=== PATIENT | male | born 1955 | race Caucasian/White ===

== ENCOUNTER 2018-08-26 09:13 | Outpatient (REF) | payer BC, SELFPAY ==
[2018-08-26 13:26] LABS: HCT 46.9 % (40.0-50.0); HGB 15.5 g/dL (13.5-17.5); Mean Corpuscular Hemoglobin 28.9 pg (27.0-33.0); Mean Corpuscular Volume 87.3 fL (80-95); Mean Platelet Volume 10.2 fL (8.0-11.0); Platelet Count 264 x1000/uL (130-400); RBC 5.37 m/cumm (4.50-6.00); RBC Distribution Width 12.5 % (11.8-14.1)
[2018-08-26 14:15] LABS: ALT 24 U/L (12-78); AST 18 U/L (15-37); Albumin 3.9 g/dL (3.4-5.0); Alkaline Phosphatase 60 U/L (46-116); Anion Gap 7.1 mmol/L (3-11); BUN 22 mg/dL (7-18); Bilirubin, Total 0.5 mg/dL (0.2-1.0); CO2 28.9 mmol/L (21.0-32.0); CREATININE 1.22 mg/dL (0.70-1.30); Calcium 9.3 mg/dL (8.5-10.1); Chloride 106 mmol/L (98-107); Cholesterol 140 mg/dL (50-200); Glucose 93 mg/dL (70-100); HDL Cholesterol 42 mg/dL (40-60); LDL CHOLESTEROL 55 mg/dL (<100); Potassium 4.6 mmol/L (3.5-5.1); Sodium 142 mmol/L (136-145); Total Protein 7.1 g/dL (6.4-8.2); Triglyceride 130 mg/dL (30-150)
== END 2018-08-26 09:33 ==
LOC: NCHCN 09:13
PROVIDERS: PCP Family Medicine; Visit Provider Family Medicine
DX: Z00.00 Encounter for general adult medical examination without abnormal findings (principal); C61 Malignant neoplasm of prostate; G47.33 Obstructive sleep apnea (adult) (pediatric)
CPT/HCPCS: 80053; 80061; 83721; 85027

== ENCOUNTER 2018-08-27 15:25 | Outpatient (CLI) | payer BC, SELFPAY ==
[2018-08-29 10:46] LABS: PSA, Diagnostic <0.1 ng/ml (0-4.5)
== END 2018-08-27 15:45 ==
PROVIDERS: PCP Family Medicine; Visit Provider Urology
DX: C61 Malignant neoplasm of prostate (principal)
CPT/HCPCS: 36415; 84153

== ENCOUNTER 2019-08-28 01:27 | Outpatient (CLI) | payer BC, SELFPAY ==
[2019-08-28 08:59] LABS: ALT 35 U/L (16-63); AST 22 U/L (15-37); Albumin 3.7 g/dL (3.4-5.0); Alkaline Phosphatase 59 U/L (46-116); Anion Gap 9.5 mmol/L (3-11); BUN 22 mg/dL (7-18); Bilirubin, Total 0.5 mg/dL (0.2-1.0); CO2 26.5 mmol/L (21.0-32.0); CREATININE 1.21 mg/dL (0.70-1.30); Calcium 8.9 mg/dL (8.5-10.1); Calculated LDL 77 mg/dL; Chloride 106 mmol/L (98-107); Cholesterol 143 mg/dL (<200); Glucose 96 mg/dL (74-106); HDL Cholesterol 38 mg/dL (40-60); Potassium 4.2 mmol/L (3.5-5.1); Sodium 142 mmol/L (136-145); Total Protein 6.6 g/dL (6.4-8.2); Triglyceride 141 mg/dL (<150)
[2019-08-29 15:16] LABS: PSA, Diagnostic <0.1 ng/mL (0.0-4.5)
== END 2019-08-28 01:47 ==
PROVIDERS: PCP Family Medicine; Visit Provider Family Medicine
DX: Z00.00 Encounter for general adult medical examination without abnormal findings (principal); Z13.220 Encounter for screening for lipoid disorders; C61 Malignant neoplasm of prostate
CPT/HCPCS: 36415; 80053; 80061; 84153

== ENCOUNTER 2020-08-27 04:56 | Outpatient (CLI) | payer BC, SELFPAY ==
[2020-08-27 07:59] LABS: HCT 47.3 % (40.0-50.0); HGB 15.7 g/dL (13.5-17.5); MCH 28.5 pg (27.0-33.0); MCHC 33.2 % (32.0-36.0); MCV 85.8 fL (80-95); MPV 9.4 fL (8.0-11.0); Platelet Count 268 10^3/uL (130-400); RBC 5.51 10^6/uL (4.36-5.78); RDW 11.9 % (11.8-14.1); RDW-SD 37.2 fL; WBC 4.86 10^3/uL (4.4-10.8)
[2020-08-27 09:45] LABS: ALT 36 U/L (16-63); AST 22 U/L (15-37); Alkaline Phosphatase 58 U/L (46-116); Anion Gap 8.1 mmol/L (3-11); BUN 19 mg/dL (7-18); Bilirubin, Total 0.5 mg/dL (0.2-1.0); CO2 26.9 mmol/L (21.0-32.0); CREATININE 1.34 mg/dL (0.70-1.30); Calculated LDL 81 mg/dL (<100); Chloride 105 mmol/L (98-107); Cholesterol 157 mg/dL (<200); Estimated GFR 54.01 (mL/min/1.73m2); Glucose 103 mg/dL (74-106); HDL Cholesterol 50 mg/dL (40-60); Potassium 4.3 mmol/L (3.5-5.1); Sodium 140 mmol/L (136-145); Total Protein 7.1 g/dL (6.4-8.2); Triglyceride 133 mg/dL (<150)
[2020-08-27 19:19] LABS: PSA, Diagnostic <0.1 ng/mL (0.0-4.5)
[2020-08-30 05:20] LABS: Vitamin D 25 Total 38.7 ng/ml (30-100)
== END 2020-08-27 05:16 ==
PROVIDERS: PCP Family Medicine; Visit Provider Urology
DX: Z00.00 Encounter for general adult medical examination without abnormal findings (principal); C61 Malignant neoplasm of prostate; E55.9 Vitamin D deficiency, unspecified; Z13.220 Encounter for screening for lipoid disorders
CPT/HCPCS: 36415; 80053; 80061; 82306; 85027; 84153

== ENCOUNTER 2021-08-26 01:08 | Outpatient (CLI) | payer BC, SELFPAY ==
[2021-08-26 09:15] LABS: ALT 30 U/L (16-63); AST 19 U/L (15-37); Albumin 3.7 g/dL (3.4-5.0); Alkaline Phosphatase 58 U/L (46-116); Anion Gap 7.1 mmol/L (3-11); BUN 17 mg/dL (7-18); Bilirubin, Total 0.3 mg/dL (0.2-1.0); CO2 28.9 mmol/L (21.0-32.0); CREATININE 1.1 mg/dL (0.70-1.30); Calcium 8.9 mg/dL (8.5-10.1); Calculated LDL 80 mg/dL (<100); Chloride 105 mmol/L (98-107); Cholesterol 156 mg/dL (<200); Glucose 100 mg/dL (74-106); HDL Cholesterol 56 mg/dL (40-60); Potassium 4.2 mmol/L (3.5-5.1); Sodium 141 mmol/L (136-145); Total Protein 6.5 g/dL (6.4-8.2); Triglyceride 102 mg/dL (<150)
[2021-08-26 17:40] LABS: PSA, Diagnostic <0.1 ng/mL (0.0-4.5)
[2021-08-29 05:44] LABS: Vitamin D 25 Total 41.6 ng/mL (30-100)
== END 2021-08-26 01:09 | disposition home or self-care (01) ==
LOC: LBO 01:08
PROVIDERS: PCP Family Medicine; Visit Provider Urology
DX: E55.9 Vitamin D deficiency, unspecified; Z13.220 Encounter for screening for lipoid disorders; Z00.00 Encounter for general adult medical examination without abnormal findings; C61 Malignant neoplasm of prostate
CPT/HCPCS: 36415; 80053; 80061; 82306; 84153

== ENCOUNTER 2022-08-25 01:29 | Outpatient (CLI) | payer BC, SELFPAY ==
[2022-08-25 09:51] LABS: ALT 31 U/L (16-63); AST 19 U/L (15-37); Alkaline Phosphatase 60 U/L (46-116); Anion Gap 6.2 mmol/L (3-11); BUN 26 mg/dL (7-18); Bilirubin, Total 0.5 mg/dL (0.2-1.0); CO2 29.8 mmol/L (21.0-32.0); CREATININE 1.2 mg/dL (0.70-1.30); Calcium 9.2 mg/dL (8.5-10.1); Calculated LDL 84 mg/dL (<100); Chloride 105 mmol/L (98-107); Cholesterol 159 mg/dL (<200); Estimated GFR 67.53 (mL/min/1.73m2); Glucose 101 mg/dL (74-106); HDL Cholesterol 55 mg/dL (40-60); Sodium 141 mmol/L (136-145); Total Protein 7.3 g/dL (6.4-8.2); Triglyceride 104 mg/dL (<150)
[2022-08-25 20:28] LABS: PSA, Diagnostic <0.1 ng/mL (<=4.5)
== END 2022-08-25 01:30 | disposition home or self-care (01) ==
LOC: LBO 01:29
PROVIDERS: Urology; PCP Family Medicine; Visit Provider Family Medicine
DX: C61 Malignant neoplasm of prostate (principal); Z00.00 Encounter for general adult medical examination without abnormal findings
CPT/HCPCS: 36415; 80053; 80061; 84153

== ENCOUNTER 2022-12-11 06:45 | Day surgery (SDC) | payer MEDICARE, SELFPAY ==
--- NOTE | 2022-12-11 07:00 | W.ANESPRE ---
General Info Date of Service Date Performed: 12/11/22 Height: 5 ft 8.5 in Weight: 78.471 kg Body Mass Index (BMI): 25.9 Surgical Procedure: Operation Date: 12/11/22 08:40 Proposed Procedure Side Surgeon p Cataract Extraction with IOL Implant Left Julio Moerno MD Meds Allergies and Home Medications Allergies Allergy/AdvReac Type Severity Reaction Status Date / Time No Known Allergies Allergy Verified 12/11/22 07:31 Home Medication Medication Instructions Recorded sildenafil 100 mg tablet (Viagra) 100 mg PO PRN #10 tab-caps 09/03/20 mecobalamin (vitamin B12) 1,000 1,000 mcg PO DAILY 09/06/21 mcg chewable tablet multivitamin 1 tab PO DAILY 09/06/21 Current Visit Medications: Current Medications Generic Name Dose Route Start Last Admin Trade Name Freq PRN Reason Stop Dose Admin Acetaminophen 1,000 mg 12/11/22 06:20 Acetaminophen 500 Mg Tab PO Q4H PRN PRN Miscellaneous Medication 0 ml 12/11/22 06:20 Prednisolone 1%, Moxifloxacin 0.5%, Nepafenac 0.1% 5ml Btl OS DIRECTED RENATE Miscellaneous Medication 0 ml 12/11/22 06:20 Tropicam./Phenyleph. (1/2.5%) 5 Ml Btl OS DIRECTED RENATE Tetracaine HCl 0 ml 12/11/22 06:20 Tetracaine 0.5% 4 Ml Btl OS DIRECTED RENATE PFSH Active Problems Active Problems: Problem Status Onset Code Erectile dysfunction after radical prostatectomy 08/30/17 N52.31 Prostate cancer 08/30/17 C61 Nuclear age-related cataract, left eye H25.12 Cortical cataract of left eye H26.9 Medical History Medical History (Updated 12/08/22 @ 09:57 by Francis Smith) Central sleep apnea Detached retina Fracture of malleolus of right ankle Traumatic brain injury 2014-has had balance issues and central sleep apnea Umbilical hernia Medical History Comments:: CSA Surgical History Surgical History Radical prostatectomy scleral buckle Tobacco Smoking/Tobacco Use Status: Never Substance Use Substance use: Never Substance use type: does not use Vital Signs and Lab Results Lab Results Blood Type / Crossmatch: No Data to Display Complete Blood Count: No Data to Display Complete Metabolic Panel: No Data to Display Liver Function Panel: No Data to Display Coagulation Panel: No Data to Display Cardiac Panel: No Data to Display Arterial Blood Gas: No Data to Display Venous Blood Gas: No Data to Display Pancreas Panel: No Data to Display Thyroid Panel: No Data to Display Infectious Disease: No Data to Display Blood Cultures: No Data to Display Toxicology Panel: No Data to Display Anesthesia Assessment and Plan Anesthesia History Personal History: Other Family History: No Family History of Anesthesia Complications Exercise Tolerance Exercise Tolerance: Metabolic Equivalents>4 Pertinent Negatives Pertinent Negatives: No Symptoms of GERD, No Major Cardiovascular Symptoms or Complaints and Other (History of TBI, history of central sleep apnea. Patient uses CPAP/mini-ventilator at night) Cardiac & Pulmonary Exam Cardiac Exam: Normal S1/S2 Heart Sounds Pulmonary Exam: Clear Bilateral Breath Sounds Implantable Cardiac Device Does patient have a Pacemaker or an ICD?: No Airway Exam Known Difficult Airway: No Mallampati Class: 2 Mouth Opening: Normal (> 3cm) Thyromental Distance: Greater than 3 cm Neck Range of Motion: Full ROM Neck Circumference: Normal Teeth Condition: Normal Dentition Tooth Numberin. Indicated tooth missing in this region (surgically removed per patient). did not directly appreciate during airway assessment ASA Classification ASA Score: ASA 2 Emergency Case?: No NPO Status NPO Status: NPO Clears >2 hours, Solids >8 hours Anesthesia Plan Resuscitation Status: Full Code Anesthesia Technique: MAC Anesthesia Airway Planned: Natural Airway Monitors Used: Standard Monitors
[2022-12-11 07:19] VITALS: BP 139/85; PULSE 76; RESP 16; TEMP 37; O2SAT 96
[2022-12-11] MEDS: Tropicam./Phenyleph. (1/2.5%) 5 ML BTL (07:28)
[2022-12-11] MEDS: Tropicam./Phenyleph. (1/2.5%) 5 ML BTL OS ×3 (07:28→07:46)
[2022-12-11 07:38] VITALS: BMI 25.9
[2022-12-11] MEDS: Tetracaine 0.5% 4 ML BTL OS (08:40)
[2022-12-11] MEDS: Lidocaine 1% Pres-Free 5 ML VIAL (08:41)
[2022-12-11] MEDS: Duovisc Viscoelastic System EACH 1 EACH (08:41)
[2022-12-11] MEDS: Phenylephrine/Lidocaine (15/10) MG/ML 1 ML VIAL (08:42)
[2022-12-11] MEDS: Povidone-Iodine Ophth 30 ML BTL (08:43)
[2022-12-11] MEDS: Balanced Salt Soln.-PLUS 500 ML BAG (08:53)
[2022-12-11 09:00] VITALS: BP 133/86; PULSE 66; RESP 16; TEMP 36.6; O2SAT 98
--- NOTE | 2022-12-11 09:02 | W.PM.DSUDISC ---
Date of service: 12/11/22 Time of Service: 09:02 Discharge Plan Disposition Patient Disposition: Home Discharge Details Attending Provider: Julio Moreno Primary Care Provider: Flor Malcolm Home Meds and New Rx's Prescriptions: No Action sildenafil [Viagra] 100 mg tablet 100 mg PO PRN Qty: 10 12RF multivitamin Tablet 1 tab PO DAILY mecobalamin (vitamin B12) 1,000 mcg tablet,chewable 1,000 mcg PO DAILY flonase 2 spry NU PRN Qty: 1 0RF Discharge Instructions Stand Alone Forms: Post-op Topical Cataract, Rachael Carnes (DSU) Discharge Orders Discharge Orders: Discharge Order (Routine); Ordered 12/11/22 Ordered By: Julio Mroeno DS: Diagnosis Discharge Diagnosis (1) Nuclear age-related cataract, left eye: Status: Resolved (2) Cortical cataract of left eye: Status: Resolved
--- NOTE | 2022-12-11 09:03 | ROE_ITS ---
Date of service: 12/11/22 Time of Service: 09:03 Operative Note Operative Note DATE OF PROCEDURE: 12/11/22 PRE-OP DIAGNOSIS: Nuclear/cortical cataract, left eye Myopia, left eye History of retinal detachment, left eye, repaired with scleral buckle and pneumatic retinopexy POST-OP DIAGNOSIS: same PROCEDURE: Cataract extraction using phacoemulsification with intraocular lens implant, lef t eye SURGEON: Julio Moreno ANESTHESIA TYPE: Local By Surgeon and MAC Refer to Anesthesia Record PATHOLOGY: none sent COMPLICATIONS: None Patient was transported to: same day Patient's condition: stable Implants: Angel and Angel Tecnis Eyhance [id number] Indications: Progressive decreased vision due to cataract, left eye Procedure Description: CATARACT SURGERY OPERATIVE REPORT PREOPERATIVE DIAGNOSIS: 1. Nuclear/cortical cataract, left eye 2. High myopia, left eye 3. Post scleral buckle with pneumatic retinopexy, left eye POSTOPERATIVE DIAGNOSIS: Same OPERATION: 1. Cataract extraction using phacoemulsification with posterior chamber intraocular lens implant, left eye. 2. Implantation of capsular tension ring IOL: IOL Traveling Buyer/Model: Angel & Angel Tecnis Eyhance DIB00 IOL Power: + 7.0 diopters IOL Serial Number: [id number] Optic Diameter: 6.0 mm Haptic/Overall Diameter: 13.0 mm PHACO INFO: Rufino Centurion Vision System with OZil and Active Fluidics Cumulative Dispersed Energy (CDE): 4.01 seconds SURGEON: Julio Moreno MD, JUAN ANESTHESIA: Monitored A [facility] (MAC), with local sub-tenon's anesthetic infiltration COMPLICATIONS: None SPECIMENS: None INDICATIONS FOR PROCEDURE: The patient is a 67-year-old male with history of diminished visual acuity in his left eye secondary to develop nuclear/cortical cataract. He has a history of retinal detachment in the left eye and is status post pneumatic retinopexy and scleral buckling procedure. He has developed asymptomatic nuclear/cortical cataract and desires cataract surgery and attempt to improve and maximize his vision. The option of cataract surgery was offered to the patient and he wished to proceed. PROCEDURE: The correct surgical eye was identified and marked as the left eye and the pupil was dilated in the preoperative area using mydriatics and cycloplegics. The dilated pupil size was 8.0 mm. The patient elected to proceed without oral sedation. The patient was brought to the operating room where cardiopulmonary monitoring was instituted and surgical time-out was performed, confirming the correct operative eye and IOL power. Topical anesthesia was administered and ophthalmic povidone-iodine 5% was instilled into the conjunctival fornices. Lidocaine gel was applied to the cornea and the sally-ocular area was prepped with Betadine 10% solution and draped in the usual sterile fashion for intraocular surgery, including an aperture drape. A Tegaderm transparent film dressing was cut in half and used to cover the lashes and lid margins. Care was taken to sequester the lashes and lid margins under the Tegaderm dressing. A lid speculum was placed between the lids of the operative eye and the Rufino LuxOR Revalia operating microscope was maneuvered into position. Hyacinth scissors were then used to make a conjunctival buttonhole approximately 6mm posterior to the limbus in the inferonasal quadrant. Blunt dissection was carried out to expose bare sclera, and a blunt-tipped sub-tenon?s anesthesia cannula was introduced and passed posteriorly along the globe where non- preserved plain lidocaine was injected into posterior sub-Tenon?s space. Sub- tenon's block was incomplete secondary to the presence of the scleral buckle. A sideport knife was used to make a paracentesis port superiorly/superiortemporally. Intraocular phenylephrine/lidocaine was injected int the anterior chamber.. The anterior chamber was filled with viscoelastic. A keratome knife was used to construct a 2-plane near-clear corneal tunnel extending 2.0mm into clear cornea temporally. A flap was raised on the anterior capsule and capsulorhexis forceps were used to complete a continuous curvilinear capsulorhexis of 5.5 mm. The capsule was noted to be quite thin. Moderate to severe generalized zonular laxity was noted. Balanced salt solution was then used to perform cortical cleaving hydrodissection and nuclear hydrodelineation until the lens could be freely rotated within the capsular bag. The lens nucleus was then disassembled and removed within the capsular bag and iris plane using phacoemulsification. The ventricular zonular complex was noted to be quite mobile. Residual cortical material was removed using the 45-degree angled silicone I/A tip with 0.3mm port. The cortex was quite sticky, and required extensive irrigation/aspiration. There were some thin adherent strands in the subincisional area which could not be safely removed. The posterior capsule was carefully polished to remove as much residual lens epithelial cells as safely possible. The posterior capsule was noted to be extremely thin. The capsular bag was then inflated and the anterior chamber deepened with viscoelastic. A Morcher Type 15A capsule tension ring was inserted into the capsular bag without difficulty. The lens implant described above was inserted into the capsular bag using the Angel and Angel Simplicity pre-loaded injector. . A Kuglen hook was used to dial the IOL into position. Residual viscoelastic was then removed first from posterior to the IOL, then from the anterior chamber using the I/A handpiece. The lens implant was noted to center nicely within the capsular bag. The incisions were stromally hydrated, and the anterior chamber was reformed using BSS. Then 0.5cc of moxifloxacin 1.0mg/ml were injected into the capsular bag and anterior chamber. The incisions were checked with a Weck spear and found to be secure. Several drops of ophthalmic povidone-iodine 5% were then applied to the eye followed by two drops of Imprimis combination prednisolone/moxifloxacin/nepafenac solution. The drapes were removed and a clear plastic protective eye shield was placed over the eye. The patient was then returned to Same Day Surgery in stable condition.
--- NOTE | 2022-12-11 10:17 | W.ANESPOSTOP ---
Postoperative Evaluation Date, Time and Location Date Performed: 12/11/22 Time Performed: 09:00 Patient Location: Day Surgery Unit Vital Signs Most Recent Imported Vital Signs: Most Recent Vital Signs Temp Pulse Resp BP Pulse Ox 36.6 C 66 16 133/86 98 12/11/22 09:00 12/11/22 09:00 12/11/22 09:00 12/11/22 09:00 12/11/22 09:00 Pain Score Most Recent Pain Score: Most Recent Pain Score Pain Level 0 12/11/22 09:00 Assessment Mental Status: Awake (Alert & Oriented to Patient Baseline) Airway and Respiratory Function: Patent airway with normal (patient baseline) respiratory exam Cardiovascular Function: Hemodynamically Stable Hydration Status: Adequately Hydrated Nausea & Vomiting: No Nausea or Vomiting Pain: Pt. Denies Any Pain Peripheral Nerve Block: Other (Local by Dr. Moreno)
== END 2022-12-11 09:29 | disposition home or self-care (01) ==
LOC: SUR 06:47
PROVIDERS: PCP Family Medicine; Visit Provider Ophthalmology
PROC: (CPT 66982; principal; 2022-12-11 08:30)
DX: H25.12 Age-related nuclear cataract, left eye (principal); H52.12 Myopia, left eye; G47.30 Sleep apnea, unspecified; Z86.69 Personal history of other diseases of the nervous system and sense organs
CPT/HCPCS: 66982; V2632

== ENCOUNTER 2022-12-25 11:46 | Day surgery (SDC) | payer MEDICARE, SELFPAY ==
[2022-12-25 12:10] VITALS: BP 130/89; PULSE 73; RESP 16; TEMP 36.3; O2SAT 94
[2022-12-25] MEDS: Tropicam./Phenyleph. (1/2.5%) 5 ML BTL OD ×3 (12:18→12:33)
--- NOTE | 2022-12-25 12:21 | W.ANESPRE ---
General Info Date of Service Date Performed: 12/25/22 Height: 5 ft 8.5 in Weight: 81.8 kg Body Mass Index (BMI): 27.0 Surgical Procedure: Operation Date: 12/25/22 15:40 Proposed Procedure Side Surgeon p Cataract Extraction with IOL Implant Right Julio Moreno MD Meds Allergies and Home Medications Allergies Allergy/AdvReac Type Severity Reaction Status Date / Time No Known Allergies Allergy Verified 12/22/22 13:57 Home Medication Medication Instructions Recorded sildenafil 100 mg tablet (Viagra) 100 mg PO PRN #10 tab-caps 09/03/20 mecobalamin (vitamin B12) 1,000 1,000 mcg PO DAILY 09/06/21 mcg chewable tablet multivitamin 1 tab PO DAILY 09/06/21 Current Visit Medications: Current Medications Generic Name Dose Route Start Last Admin Trade Name Freq PRN Reason Stop Dose Admin Acetaminophen 1,000 mg 12/25/22 06:00 Acetaminophen 500 Mg Tab PO Q4H PRN PRN Miscellaneous Medication 0 ml 12/25/22 06:00 12/25/22 12:18 Tropicam./Phenyleph. (1/2.5%) 5 Ml Btl OD 1 drp DIRECTED RENATE Administration Miscellaneous Medication 0 ml 12/25/22 06:00 Prednisolone 1%, Moxifloxacin 0.5%, Nepafenac 0.1% 5ml Btl OD DIRECTED RENATE Tetracaine HCl 0 ml 12/25/22 06:00 Tetracaine 0.5% 4 Ml Btl OD DIRECTED RENATE PFSH Active Problems Active Problems: Problem Status Onset Code Erectile dysfunction after radical prostatectomy 08/30/17 N52.31 Prostate cancer 08/30/17 C61 Nuclear age-related cataract, left eye H25.12 Cortical cataract of left eye H26.9 Medical History Medical History Central sleep apnea Detached retina Fracture of malleolus of right ankle Traumatic brain injury 2013-has had balance issues and central sleep apnea Umbilical hernia Medical History Comments:: CSA Surgical History Surgical History Radical prostatectomy scleral buckle Tobacco Smoking/Tobacco Use Status: Never Alcohol Alcohol Intake: current Alcohol intake frequency: a few times a week Alcohol type: beer Substance Use Substance use: Never Substance use type: does not use Vital Signs and Lab Results Vital Signs Most Recent Vital Signs in EMR: Most Recent Vital Signs Temp Pulse Resp BP Pulse Ox 36.3 C L 73 16 130/89 94 12/25/22 12:10 12/25/22 12:10 12/25/22 12:10 12/25/22 12:10 12/25/22 12:10 Lab Results Blood Type / Crossmatch: No Data to Display Complete Blood Count: No Data to Display Complete Metabolic Panel: No Data to Display Liver Function Panel: No Data to Display Coagulation Panel: No Data to Display Cardiac Panel: No Data to Display Arterial Blood Gas: No Data to Display Venous Blood Gas: No Data to Display Pancreas Panel: No Data to Display Thyroid Panel: No Data to Display Infectious Disease: No Data to Display Blood Cultures: No Data to Display Toxicology Panel: No Data to Display Anesthesia Assessment and Plan Anesthesia History Personal History: No History of Anesthesia Complications Family History: No Family History of Anesthesia Complications Exercise Tolerance Exercise Tolerance: Metabolic Equivalents>4 Pertinent Negatives Pertinent Negatives: No Symptoms of GERD, No Major Cardiovascular Symptoms or Complaints and No Major Pulmonary Symptoms or Complaints Cardiac & Pulmonary Exam Cardiac Exam: Normal S1/S2 Heart Sounds Pulmonary Exam: Clear Bilateral Breath Sounds Implantable Cardiac Device Does patient have a Pacemaker or an ICD?: No Airway Exam Known Difficult Airway: No Mallampati Class: 2 Mouth Opening: Normal (> 3cm) Thyromental Distance: Greater than 3 cm Neck Range of Motion: Full ROM Neck Circumference: Normal Teeth Condition: Normal Dentition ASA Classification ASA Score: ASA 2 Emergency Case?: No NPO Status NPO Status: NPO Clears >2 hours, Solids >8 hours Anesthesia Plan Resuscitation Status: Full Code Anesthesia Technique: MAC Anesthesia Airway Planned: Natural Airway Monitors Used: Standard Monitors
[2022-12-25 12:46] VITALS: BMI 27.0
[2022-12-25] MEDS: Tetracaine 0.5% 4 ML BTL OD (13:01)
[2022-12-25] MEDS: Duovisc Viscoelastic System EACH 1 EACH (13:02)
[2022-12-25] MEDS: Balanced Salt Soln.-PLUS 500 ML BAG (13:02)
[2022-12-25] MEDS: Lidocaine 1% Pres-Free 5 ML VIAL (13:02)
[2022-12-25] MEDS: Phenylephrine/Lidocaine (15/10) MG/ML 1 ML VIAL (13:04)
[2022-12-25] MEDS: Povidone-Iodine Ophth 30 ML BTL (13:04)
[2022-12-25 13:15] VITALS: BP 130/92; PULSE 66; RESP 16; TEMP 36.3; O2SAT 99
--- NOTE | 2022-12-25 13:16 | ROE_ITS ---
Date of service: 12/25/22 Time of Service: 13:16 Operative Note Operative Note DATE OF PROCEDURE: 12/25/22 PRE-OP DIAGNOSIS: Nuclear cataract, right eye high myopia POST-OP DIAGNOSIS: same PROCEDURE: Cataract extraction using phacoemulsification with intraocular lens implant, right eye SURGEON: Julio Moreno ANESTHESIA TYPE: Local By Surgeon and MAC Refer to Anesthesia Record ESTIMATED BLOOD LOSS: 0 PATHOLOGY: none sent COMPLICATIONS: None Patient was transported to: same day Patient's condition: stable Implants: Angel & Angel Tecnis Eyhance [id number] Indications: Progressive visual loss due to cataract, right eye Procedure Description: CATARACT SURGERY OPERATIVE REPORT PREOPERATIVE DIAGNOSIS: 1. Nuclear cataract, right eye 2. High myopia, right eye POSTOPERATIVE DIAGNOSIS: Same OPERATION: 1. Cataract extraction using phacoemulsification with posterior chamber intraocular lens implant, right eye. IOL: IOL Phlebotomy Instructor/Model: Angel & Angel Tecnis Eyhance DIB00 IOL Power: + 9.0 diopters IOL Serial Number: [id number] Optic Diameter: 6.0mm Haptic/Overall Diameter: 13.0mm PHACO INFO: Rufino Decision Sciencesurion Vision System with OZil and Active Fluidics Cumulative Dispersed Energy (CDE): 4.76 seconds SURGEON: Julio Moreno MD, JUAN ANESTHESIA: Monitored Anesthesia Care (MAC), with local sub-tenon's anesthetic infiltration COMPLICATIONS: None SPECIMENS: None INDICATIONS FOR PROCEDURE: The patient is a 67-year-old gentleman with history of high myopia who has developed significant bilateral nuclear cataract. He previously had retinal detachment surgery in the left eye and has already undergone cataract surgery t here. He now presents for removal of visual asymptomatic cataract in the right eye. PROCEDURE: The correct surgical eye was identified and marked as the right eye and the pupil was dilated in the preoperative area using mydriatics and cycloplegics. The dilated pupil size was 8.0 mm. The patient elected to proceed without oral sedation. The patient was brought to the operating room where cardiopulmonary monitoring was instituted and surgical time-out was performed, confirming the correct operative eye and IOL power. Topical anesthesia was administered and ophthalmic povidone-iodine 5% was instilled into the conjunctival fornices. Lidocaine gel was applied to the cornea and the sally-ocular area was prepped with Betadine 10% solution and draped in the usual sterile fashion for intraocular surgery, including an aperture drape. A Tegaderm transparent film dressing was cut in half and used to cover the lashes and lid margins. Care was taken to sequester the lashes and lid margins under the Tegaderm dressing. A lid speculum was placed between the lids of the operative eye and the Rufino LuxOR Revalia operating microscope was maneuvered into position. Hyacinth scissors were then used to make a conjunctival buttonhole approximately 6mm posterior to the limbus in the inferonasal quadrant. Blunt dissection was carried out to expose bare sclera, and a blunt-tipped sub-tenon?s anesthesia cannula was introduced and passed posteriorly along the globe where non- preserved plain lidocaine was injected into posterior sub-Tenon?s space. A sideport knife was used to make a paracentesis port inferotemporally. Intraocular phenylephrine/lidocaine was injected into the anterior chamber. The anterior chamber was filled with viscoelastic. A keratome knife was used to construct a 2-plane near-clear corneal tunnel extending 2.0mm into clear cornea superiortemporally. A flap was raised on the anterior capsule and capsulorhexis forceps were used to complete a continuous curvilinear capsulorhexis of 5.5 mm. Balanced salt solution was then used to perform cortical cleaving hydrodissection and nuclear hydrodelineation until the lens could be freely rotated within the capsular bag. The lens nucleus was then disassembled and removed within the capsular bag and iris plane using phacoemulsification. Residual cortical material was removed using the I/A handpiece. The posterior capsule was carefully polished to remove as much residual lens epithelial cells as safely possible. The capsular bag was then inflated and the anterior chamber deepened with viscoelastic. The lens implant described above was inserted into the capsular bag using the Angel and Kelin Simplicity pre-loaded injector. A Kuglen hook was used to dial the IOL into position. Residual viscoelastic was then removed first from posterior to the IOL, then from the anterior chamber using the I/A handpiece. The lens implant was noted to center nicely within the capsular bag. The incisions were stromally hydrated, and the anterior chamber was reformed using BSS. Then 0.5cc of moxifloxacin 1.0mg/ml were injected into the capsular bag and anterior chamber. The incisions were checked with a Weck spear and found to be secure. Several drops of ophthalmic povidone-iodine 5% were then applied to the eye followed by two drops of Imprimis combination prednisolone/moxifloxacin/nepafenac solution. The drapes were removed and a clear plastic protective eye shield was placed over the eye. The patient was then returned to Same Day Surgery in stable condition.
--- NOTE | 2022-12-25 13:16 | W.PM.DSUDISC ---
Date of service: 12/25/22 Time of Service: 13:16 Discharge Plan Disposition Patient Disposition: Home Discharge Details Attending Provider: Julio Moreno Primary Care Provider: Flor Malcolm Home Meds and New Rx's Prescriptions: No Action sildenafil [Viagra] 100 mg tablet 100 mg PO PRN Qty: 10 12RF multivitamin Tablet 1 tab PO DAILY mecobalamin (vitamin B12) 1,000 mcg tablet,chewable 1,000 mcg PO DAILY flonase 2 spry NU PRN Qty: 1 0RF Discharge Instructions Stand Alone Forms: Post-op Topical Cataract, Rachael Carnes (DSU) Discharge Orders Discharge Orders: Discharge Order (Routine); Ordered 12/25/22 Ordered By: Julio Moreno DS: Diagnosis Discharge Diagnosis (1) Nuclear age-related cataract, right eye: Status: Resolved
--- NOTE | 2022-12-25 13:47 | W.ANESPOSTOP ---
Postoperative Evaluation Date, Time and Location Date Performed: 12/25/22 Time Performed: 13:20 Patient Location: Day Surgery Unit Vital Signs Most Recent Imported Vital Signs: Most Recent Vital Signs Temp Pulse Resp BP Pulse Ox 36.3 C L 66 16 130/92 H 99 12/25/22 13:15 12/25/22 13:15 12/25/22 13:15 12/25/22 13:15 12/25/22 13:15 Pain Score Most Recent Pain Score: Most Recent Pain Score Pain Level 0 12/25/22 13:15 Assessment Mental Status: Awake (Alert & Oriented to Patient Baseline) Airway and Respiratory Function: Patent airway with normal (patient baseline) respiratory exam Cardiovascular Function: Hemodynamically Stable Hydration Status: Adequately Hydrated Nausea & Vomiting: No Nausea or Vomiting Pain: Pt. Denies Any Pain Peripheral Nerve Block: Patient did not receive a nerve block
== END 2022-12-25 13:43 | disposition home or self-care (01) ==
LOC: SUR 11:46
PROVIDERS: PCP Family Medicine; Visit Provider Ophthalmology
PROC: (CPT 66984; principal; 2022-12-25 15:30)
DX: H25.11 Age-related nuclear cataract, right eye (principal); Z98.42 Cataract extraction status, left eye
CPT/HCPCS: 66984; V2632

== ENCOUNTER → 2023-03-29 13:27 | Outpatient (BNVA) | payer MEDICARE, BC, SELFPAY | PROVIDERS: PCP Family Medicine; Referring Provider Family Medicine; Visit Provider Physical Therapy Assistant | DX: Z12.11 Encounter for screening for malignant neoplasm of colon (principal); Z86.010 Personal history of colon polyps ==

== ENCOUNTER 2023-04-09 10:33 | Day surgery (SDC) | payer MEDICARE, SELFPAY ==
[2023-04-09] VITALS (7 sets, daily range): BP systolic 91–131; BP diastolic 45–98; PULSE 67–82; RESP 11–18; TEMP 36.1–36.8; O2SAT 97–99; BMI 26.4
--- NOTE | 2023-04-09 09:46 | ANES.PREOP_ITS ---
General Info Date of Service Date Performed: 04/09/23 Height: 5 ft 8.5 in Weight: 79.832 kg Body Mass Index (BMI): 26.4 Surgical Procedure: Operation Date: 04/09/23 11:20 Proposed Procedure Side Surgeon kary Ang, DO Meds Allergies and Home Medications Allergies Allergy/AdvReac Type Severity Reaction Status Date / Time No Known Allergies Allergy Verified 04/09/23 10:53 Home Medication Medication Instructions Recorded sildenafil 100 mg tablet (Viagra) 100 mg PO PRN #10 tab-caps 09/03/20 mecobalamin (vitamin B12) 1,000 1,000 mcg PO DAILY 09/06/21 mcg chewable tablet multivitamin 1 tab PO DAILY 09/06/21 bisacodyl 5 mg tablet,delayed 5 mg PO ONCE #4 tabs 03/29/23 release (Dulcolax (bisacodyl)) polyethylene glycol 3350 17 17 g PO ONCE #238 grams 03/29/23 gram/dose oral powder Current Visit Medications: Current Medications Generic Name Dose Route Start Last Admin Trade Name Corbinq PRN Reason Stop Dose Admin Hyoscyamine Sulfate 0.125 mg 04/09/23 10:08 Hyoscyamine 0.125 Mg Sl/Oral/Chew SL 05/09/23 10:07 DIRECTED PRN Ringer's Solution 1,000 mls @ 80 mls/hr 04/09/23 06:00 IV 04/09/23 23:59 INFUSION [facility] IV Miscellaneous Supplies 1 each 04/09/23 06:00 Iv Access IV 04/09/23 23:59 DIRECTED [facility] Ondansetron HCl 4 mg 04/09/23 10:08 Ondansetron 4 Mg/2 Ml Vial IVP 05/09/23 10:07 Q4H PRN PRN Nausea / Vomiting Sodium Chloride 0 ml 04/09/23 06:00 Normal Saline Flush 10 Ml Syr IV 04/09/23 23:59 PRN PRN Sodium Chloride 0 ml 04/09/23 06:00 Normal Saline 10 Ml Vial IJ 04/09/23 23:59 DIRECTED PRN Sterile Water 0 ml 04/09/23 06:00 Water,Injection,Sterile 10 Ml Vial IJ 04/09/23 23:59 DIRECTED PRN PFSH Active Problems Active Problems: Problem Status Onset Code Erectile dysfunction after radical prostatectomy 08/30/17 N52.31 Prostate cancer 08/30/17 C61 Nuclear age-related cataract, left eye H25.12 Cortical cataract of left eye H26.9 Nuclear age-related cataract, right eye H25.11 Medical History Medical History (Updated 04/06/23 @ 12:03 by Francis Smith) Central sleep apnea Detached retina Fracture of malleolus of right ankle Traumatic brain injury 2014-has had balance issues and central sleep apnea (Controlled) Umbilical hernia Medical History Comments:: CSA Surgical History Surgical History H/O colonoscopy with polypectomy Radical prostatectomy scleral buckle Tobacco Smoking/Tobacco Use Status: Never Alcohol Alcohol Intake: current Alcohol intake frequency: a few times a week Alcohol type: beer Substance Use Substance use: Never Substance use type: does not use Vital Signs and Lab Results Vital Signs Most Recent Vital Signs in EMR: Temp Pulse Resp BP Pulse Ox 36.8 C 82 18 131/90 97 04/09/23 10:47 04/09/23 10:47 04/09/23 10:47 04/09/23 10:47 04/09/23 10:47 Lab Results Blood Type / Crossmatch: No Data to Display Complete Blood Count: No Data to Display Complete Metabolic Panel: No Data to Display Liver Function Panel: No Data to Display Coagulation Panel: No Data to Display Cardiac Panel: No Data to Display Arterial Blood Gas: No Data to Display Venous Blood Gas: No Data to Display Pancreas Panel: No Data to Display Thyroid Panel: No Data to Display Infectious Disease: No Data to Display Blood Cultures: No Data to Display Toxicology Panel: No Data to Display Anesthesia Assessment and Plan Anesthesia History Personal History: Other Family History: No Family History of Anesthesia Complications Exercise Tolerance Exercise Tolerance: Metabolic Equivalents>4 Cardiac & Pulmonary Exam Cardiac Exam: Normal S1/S2 Heart Sounds Pulmonary Exam: Clear Bilateral Breath Sounds Implantable Cardiac Device Does patient have a Pacemaker or an ICD?: No Airway Exam Known Difficult Airway: No Mallampati Class: 2 Mouth Opening: Normal (> 3cm) Thyromental Distance: Greater than 3 cm Neck Range of Motion: Full ROM Neck Circumference: Normal Teeth Condition: Normal Dentition ASA Classification ASA Score: ASA 2 Emergency Case?: No NPO Status NPO Status: NPO Clears >2 hours, Solids >8 hours Anesthesia Plan Resuscitation Status: Full Code Anesthesia Technique: General Anesthesia Airway Planned: Natural Airway Monitors Used: Standard Monitors Preoperative Comments:: 67 yo male for colo. Sig PMHx: central sleep apnea, TBI, radical prostatectomy, never smoker,
[2023-04-09] MEDS: Lactated Ringers 1,000 ML 80 ML IV (11:03)
--- NOTE | 2023-04-09 11:55 | BOWEL_PTH ---
PATIENT: Federico Jacob LOC: [facility] U#:[id number] AGE/SX: 67/M ROOM: RE04/09/[address]: Anabel Ang : 1955 BED: DIS: 04/09/2023 SPEC #: [id number] RECD: 04/09/23 13:13 STATUS: AMEENA RE #: [id number] FATMATA: 04/09/23 11:[address]: Anabel Ang DEPT: Surgical Specimen RECD BY: Mae Stewart ENTERED: 04/09/23 13:14 SP TYPE: Bowel OTHR DR: Flor Malcolm Tissues: 1 - BIOPSY BOWEL 2 - BIOPSY BOWEL Procedures: GROSS AND MICRO LEVEL 4 Comments: [id number]
--- NOTE | 2023-04-09 12:39 | W.PM.DSUDISC ---
Date of service: 04/09/23 Time of Service: 12:40 Discharge Plan Disposition Patient Disposition: Home Condition: Good Discharge Details Reason For Visit: colon scope Attending Provider: Anabel Ang Primary Care Provider: Flor Malcolm Home Meds and New Rx's Prescriptions: Continued sildenafil [Viagra] 100 mg tablet 100 mg PO PRN Qty: 10 12RF multivitamin Tablet 1 tab PO DAILY mecobalamin (vitamin B12) 1,000 mcg tablet,chewable 1,000 mcg PO DAILY flonase 2 spry NU PRN Qty: 1 0RF Discontinued bisacodyl [Dulcolax (bisacodyl)] 5 mg tablet,delayed release (DR/EC) 5 mg PO ONCE Qty: 4 0RF Rx Instructions: Take per colonoscopy instructions provided by ordering providers office polyethylene glycol 3350 17 gram/dose powder 17 g PO ONCE Qty: 238 0RF Rx Instructions: Take per colonoscopy instructions provided by ordering providers office Discharge Instructions Additional Instructions: DSU Colonoscopy Post-Op Instructions Instructions for Everyone who is given Anesthesia: For your safety, please do the following for the next twenty-four (24) hours: *Do Not operate a motor vehicle (car, truck, motorcycle, etc.) *Do Not drink alcoholic beverages or use any recreational drugs for the first 24 hours or while taking pain medications. The medications in your body may have a reaction that can be dangerous. *Do Not make any important decisions or sign any important papers. Findings: x1 colon polyp pseudopolyps Follow up: My office will send a letter in 2 to 3 weeks time with the biopsy results and when we want you to repeat the colonoscopy 1. No lifting over 20 pounds or strenuous activity for the first 24 hours after your procedure. After 24 hours there are no restrictions on your activity but you may feel fatigued for a few days. 2. After you arrive home you may have a light meal and return to your normal diet as you can tolerate it without feeling sick to your stomach. 3. You may have a bloated, gaseous feeling in your belly (abdomen) after a colonoscopy. Passing gas and belching will help. Walking or lying down on your left side with your knees flexed may relieve the discomfort. Call the office at [phone] (Office) or [phone] (Hospital) right away if you notice any of the following: a.Vomiting of blood or ?coffee ground stools?. b.Rectal bleeding 1Tbsp, blood clots or continuous bleeding. c.Severe belly (abdominal) pain. d.A hard distended belly (abdomen) and an inability to pass gas. 4. Please don?t expect to have a normal BM (bowel movement) for 2-3 days after your procedure. 5. If there are questions regarding the findings of your procedure, please contact your doctor 6. If you are unable to contact your doctor with a problem, contact the hospital at [phone]. 7. Continue all your regular medications unless directed otherwise. I understand the above instructions and have no questions. Signature of Patient or Adult Escort Name of Responsible Adult Escort Signature of Nurse Date/Time Stand Alone Forms: Anesthesia Discharge Inst., Rachael Carnes (DSU) Activity:: see above Diet:: see above Discharge Orders Discharge Orders: Discharge Order (Routine); Ordered 04/09/23 Ordered By: Anabel Ang DS: Diagnosis Discharge Diagnosis (1) Adenomatous polyps: Status: Acute Asessment and Plan: The patient is seen and examined after their colonoscopy.? The patient has been able to pass gas.? They are not having abdominal pain.? They have been able to tolerate liquids and a snack.? They do not have any nausea or vomiting.? They are not having any chest pain or shortness of breath.??? They are not having any rectal bleeding. Their vital signs have been stable-see nursing notes. We discussed findings during their colonoscopy, and any biopsies that were done/polyps that were removed. The patient will be sent a letter with any biopsy results, and when to repeat the colonoscopy.-see discharge instructions. Patient was given explicit instructions to follow-up regarding colonoscopy-refer to discharge instructions.? We reviewed resumption of medications.Patient verbalized understanding and discharged in stable and satisfactory condition- See nursing notes (2) Central sleep apnea: (3) Traumatic brain injury:
--- NOTE | 2023-04-09 12:47 | W.ANESPOSTOP ---
Postoperative Evaluation Date, Time and Location Date Performed: 04/09/23 Time Performed: 12:48 Patient Location: PACU Vital Signs Most Recent Imported Vital Signs: Most Recent Vital Signs Temp Pulse Resp BP Pulse Ox 36.6 C 69 15 91/51 L 98 04/09/23 12:40 04/09/23 12:40 04/09/23 12:40 04/09/23 12:40 04/09/23 12:40 Pain Score Most Recent Pain Score: Most Recent Pain Score Pain Level 0 04/09/23 12:40 Assessment Mental Status: Awake (Alert & Oriented to Patient Baseline) Airway and Respiratory Function: Patent airway with normal (patient baseline) respiratory exam Cardiovascular Function: Hemodynamically Stable Hydration Status: Adequately Hydrated Nausea & Vomiting: No Nausea or Vomiting Pain: Pt. Denies Any Pain Peripheral Nerve Block: Patient did not receive a nerve block
--- NOTE | 2023-04-09 13:04 | W.COLOREPORT ---
Date of service: 04/09/23 Time of Service: 13:04 Colonoscopy Report Date of procedure: 04/09/23 Pre-op diagnosis general: History of serrated adenoma and hyperplastic polyps Post-op diagnosis procedure note: same Surgeon: Anabel Ang Anesthesia Type: General:No Airway Estimated blood loss (mL): 3 Pathology: other Complications: None Disposition: PACU Prep: Miralax/Dulcolax Retraction Time: 30 mins Procedure Description: After informed consent was obtained the patient was taken to the procedure room and placed in a left decubitous position. Monitors were applied and a time out was done. The patients name, date of , procedure, allergies to medications and metal in their body was reviewed. The patient was then sedated. Once sedated and comfortable a rectal exam was done. External exam was normal. Internal exam revealed a normal sphincter tone and no palpable masses. The prostate absent The scope was then introduced and retrofelexed. No internal hemorrhoids were identified. The scope was then advanced to the cecum without difficulty. The TI and appendiceal orifice were identified. The prep was BBPS 1 in all segments for total of 3. He has what appears to be pseudopolyposis from 80 cm to 40 cm. Multiple of these polyps were sampled around 70cm, But is not feasible to remove all of them. The scope was then slowly retracted over 30 minutes back into the rectum. Polyps were removed in the rectum, a 0.75cm and pedunculated and is removed with a cold snare. All specimen is retrieved and no bleeding is noted. No diverticula are seen. . The scope was removed and the patient was woken up and taken back to Same day surgery in stable condition. The patient tolerated the procedure well and there were no immediate complications. Follow up: The patient should follow up in 3-5 years unless they develop changes in bowel habits or other new gastrointestinal complaints. I did discuss the findings with the patient in the recovery room. He said that 20 years ago he had some type of inflammatory bowel disease and he was actually in the hospital for several days on steroids patient said they have never really known exactly if it was inflammatory. He has never had another episode. 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
== END 2023-04-09 14:38 | disposition home or self-care (01) ==
PROVIDERS: PCP Family Medicine; Visit Provider Surgery
PROC: 0DJD8ZZ Inspection of Lower Intestinal Tract, Via Natural or Artificial Opening Endoscopic (ICD-10-PCS; CPT 45378; principal; 2023-04-09 11:15)
DX: Z12.11 Encounter for screening for malignant neoplasm of colon (principal); Z86.010 Personal history of colon polyps; K63.5 Polyp of colon; K62.1 Rectal polyp
CPT/HCPCS: 45385; 45380; 88305; J2001; J2704

== ENCOUNTER 2023-09-19 04:51 | Outpatient (CLI) | payer MEDICARE, SELFPAY ==
[2023-09-19 10:16] LABS: ALT 39 U/L (16-63); AST 18 U/L (15-37); Albumin 3.8 g/dL (3.4-5.0); Alkaline Phosphatase 69 U/L (46-116); Anion Gap 6.2 mmol/L (3-11); BUN 23 mg/dL (7-18); Bilirubin, Total 0.5 mg/dL (0.2-1.0); CO2 28.8 mmol/L (21.0-32.0); CREATININE 1.2 mg/dL (0.70-1.30); Calcium 9.4 mg/dL (8.5-10.1); Calculated LDL 91 mg/dL (<100); Chloride 106 mmol/L (98-107); Cholesterol 173 mg/dL (<200); Estimated GFR 67.11 (mL/min/1.73m2); Glucose 99 mg/dL (74-106); HDL Cholesterol 48 mg/dL (40-60); Sodium 141 mmol/L (136-145); Total Protein 7.2 g/dL (6.4-8.2); Triglyceride 173 mg/dL (<150)
[2023-09-19 18:28] LABS: PSA, Diagnostic <0.1 ng/mL (<=4.5)
== END 2023-09-19 04:52 | disposition home or self-care (01) ==
LOC: LBO 04:52
PROVIDERS: Urology; PCP Family Medicine; Visit Provider Family Medicine
DX: C61 Malignant neoplasm of prostate (principal); N52.31 Erectile dysfunction following radical prostatectomy; Z00.00 Encounter for general adult medical examination without abnormal findings
CPT/HCPCS: 36415; 80053; 80061; 84153

== ENCOUNTER → 2023-09-28 14:15 | Outpatient (BNVA) | payer MEDICARE, SELFPAY | PROVIDERS: PCP Family Medicine; Visit Provider Urology | DX: C61 Malignant neoplasm of prostate (principal) | CPT/HCPCS: 99213 ==

== ENCOUNTER 2023-11-02 15:21 | Outpatient (REF) | payer MEDICARE, SELFPAY ==
--- NOTE | 2023-11-02 11:00 | SKI_PTH ---
PATIENT: Federico Jacob LOC: [facility] U#:[id number] AGE/SX: 67/M ROOM: RE11/02/[address]: Flor Malcolm : 1955 BED: DIS: 11/02/2023 SPEC #: [id number] RECD: 11/02/23 16:44 STATUS: AMEENA REJanina #: [id number] FATMATA: 11/02/23 11:[address]: Flor Malcolm DEPT: Surgical Specimen RECD BY: Mae Stewart Tissues: 1 - SKIN BIOPSY(SHAVE/PUNCH) Procedures: SKIN LEVEL 4 Comments: [id number]
== END 2023-11-02 15:22 | disposition home or self-care (01) ==
LOC: LBN 15:21
PROVIDERS: PCP Family Medicine; Visit Provider Family Medicine
DX: Z00.00 Encounter for general adult medical examination without abnormal findings (principal)
CPT/HCPCS: 88305

== ENCOUNTER 2024-09-23 03:25 | Outpatient (CLI) | payer MEDICARE, SELFPAY ==
[2024-09-23 07:36] LABS: ALT 33 U/L (16-63); AST 25 U/L (15-37); Alkaline Phosphatase 69 U/L (46-116); Anion Gap 7.4 mmol/L (3-11); BUN 29 mg/dL (7-18); Bilirubin, Total 0.57 mg/dL (0.2-1.0); CO2 28.6 mmol/L (21.0-32.0); CREATININE 1.4 mg/dL (0.70-1.30); Calcium 9.3 mg/dL (8.5-10.1); Calculated LDL 116 mg/dL (<100); Chloride 107 mmol/L (98-107); Cholesterol 190 mg/dL (<200); Estimated GFR 55.43 (mL/min/1.73m2); Glucose 99 mg/dL (74-106); HDL Cholesterol 51 mg/dL (40-60); Potassium 4.2 mmol/L (3.5-5.1); Sodium 143 mmol/L (136-145); Total Protein 7.2 g/dL (6.4-8.2); Triglyceride 119 mg/dL (<150)
[2024-09-23 23:04] LABS: PSA, Diagnostic <0.1 ng/mL (<=4.5)
== END 2024-09-23 03:26 | disposition home or self-care (01) ==
LOC: LBO 03:25
PROVIDERS: PCP Family Medicine; Visit Provider Urology
DX: C61 Malignant neoplasm of prostate (principal); R07.9 Chest pain, unspecified
CPT/HCPCS: 36415; 80053; 80061; 84153

== ENCOUNTER → 2024-09-30 14:15 | Outpatient (BNVA) | payer MEDICARE, SELFPAY | PROVIDERS: PCP Family Medicine; Visit Provider Nurse Practitioner Gerontology | DX: N52.31 Erectile dysfunction following radical prostatectomy (principal); C61 Malignant neoplasm of prostate | CPT/HCPCS: 99213 ==